=== PATIENT | female | born 1995 | race Caucasian/White ===

== ENCOUNTER 2016-12-11 00:54 | Emergency (ER) | payer BC ==
[2016-12-11 01:01] VITALS: BP 162/85; PULSE 106; RESP 18; TEMP 98.1; O2SAT 96
--- NOTE | 2016-12-11 01:07 | EDPHY ---
H & P Stated Complaint: fall and hit head HPI/ROS: HPI CHIEF COMPLAINT: Fall, head injury, hematoma, alcohol this evening. HISTORY OF PRESENT ILLNESS: This patient very pleasant 21-year-old female, no significant medical history does not take any daily medications no blood thinners. She went out drinking this evening with her friends. She tried to jump on the back for friend to get a Piggy back she fell landing on the right side of her head. Denies LOC. Denies neck pain. No vomiting. Has localized 2 x 3 cm hematoma right temporal region. Denies significant headache. Denies blurry vision or double vision. No numbness or tingling or weakness. Patient tells me tetanus shot is up-to- date. Past Medical History: No medical history Past Surgical History: No surgical history Social History: Alcohol this evening. 3-4 drinks reported by her. Family History: Noncontributory ROS REVIEW OF SYSTEMS: A comprehensive 10 point review of systems is otherwise negative aside from elements mentioned in the history of present illness. Exam Constitutional appears well nontoxic triage nursing summary reviewed, vital signs reviewed, awake/alert. Eyes normal conjunctivae and sclera, EOMI, PERRLA. HENT head/neck: 2 x 3 cm right temporal region hematoma. No neck pain. No midline cervical spine pain. No step-offs or crepitus. No laceration. normal inspection, atraumatic, moist mucus membranes, no epistaxis, neck supple/ no meningismus, no raccoon eyes. Respiratory clear to auscultation bilaterally, normal breath sounds, no respiratory distress, no wheezing. Cardiovascular rate normal, regular rhythm, no murmur, no edema, distal pulses normal. Gastrointestinal soft, non-tender, no rebound, no guarding, normal bowel sounds, no distension, no pulsatile mass. Genitourinary no CVA tenderness. Musculoskeletal no midline vertebral tenderness, full range of motion, no calf swelling, no tenderness of extremities, no meningismus, good pulses, neurovascularly intact. Skin pink, warm, & dry, no rash, skin atraumatic. Neurologic awake, alert and oriented x 3, AAOx3, moves all 4 extremities equally, motor intact, sensory intact, CN II-XII intact, normal cerebellar, normal vision, normal speech. Psychiatric normal mood/affect. Heme/Lymph/Immune no lymphadenopathy. Differential Diagnosis: Includes but is not limited to in a particular order closed-head injury, intracranial bleed, skull fracture, hematoma. Medical Decision Making: Plan for this patient CT head without contrast due to head trauma gets concrete with alcohol. If her head CT is no role lower to go home ice her hematoma. Return to the emergency room if there is worsening headache, vomiting or any questions or concerns. She understands. Re-evaluation: CT scan of the head without IV contrast. The results of the study are negative for acute traumatic injury soft tissue swelling. No bleed. No skull fracture.. The study was read by Dr. Weaver. I viewed the images myself on the PACS system. Patient given strict return precautions understands return emergency room if she develops any worsening symptoms questions or concerns includes severe headache, vomiting ice her hematoma of next 48 hours. Source: Patient - Personal History LMP (Females 10-55): 8-14 Days Ago Current Tetanus/Diphtheria Vaccine: Yes - Medical/Surgical History Hx Asthma: No Hx Chronic Respiratory Disease: No Hx Diabetes: No Hx Cardiac Disease: No Hx Renal Disease: No Hx Cirrhosis: No Hx Alcoholism: No Hx HIV/AIDS: No Hx Splenectomy or Spleen Trauma: No Other PMH: no PMH - Social History Smoking Status: Never smoked Constitutional: Initial Vital Signs Temperature (C) 36.7 C 12/11/16 00:57 Heart Rate 106 H 12/11/16 00:57 Respiratory Rate 18 12/11/16 00:57 Blood Pressure 162/85 H 12/11/16 00:57 O2 Sat (%) 96 12/11/16 00:57 O2 Delivery Mode Room Air Allergies/Adverse Reactions: No Known Allergies Allergy (Unverified 12/11/16 01:01) Home Medications: Medication Instructions Recorded NK [No Known Home Meds] 12/11/16 Departure - Departure Disposition: Home, Routine, Self-Care Clinical Impression: Hematoma Condition: Good Instructions: Concussion (ED), Head Injury (ED), Hematoma (ED) Additional Instructions: 1.Ice your hematoma for the next 24-48 hours. 2. Return to the emergency room if he develops severe pain, vomiting or any questions or concerns. 3. Take Tylenol or Motrin for pain control no aspirin. Referrals: NONE *PRIMARY CARE P,. [Primary Care Provider] - As per Instructions
== END 2016-12-11 02:05 | disposition home or self-care (01) ==
DX: S00.83XA Contusion of other part of head, initial encounter (principal); W01.198A Fall on same level from slipping, tripping and stumbling with subsequent striking against other object, initial encounter